=== PATIENT | male | born 1965 | race Two or more races ===

== ENCOUNTER 2021-12-07 06:59 | Emergency (ER) | payer OTHER ==
[~2021-12-07] VITALS: Ht 167.6 cm; Wt 68.0 kg
[2021-12-07 08:17] VITALS: BP 124/62
[2021-12-07] MEDS ORDERED: CIP03OS LEFTEYE (08:32)
== END 2021-12-07 08:39 | disposition home or self-care (01) ==
LOC: ER 06:59
DX: H10.9 Unspecified conjunctivitis (principal); Z79.899 Other long term (current) drug therapy

== ENCOUNTER 2022-02-10 07:22 | Emergency (ER) | payer OTHER ==
[~2022-02-10] VITALS: Ht 167.6 cm; Wt 69.0 kg
[~2022-02-10 07:22] MED LIST: CIP03OS LEFTEYE
[2022-02-10] MEDS ORDERED: ERY05OO OP (08:19)
[2022-02-10 08:20] VITALS: BP 136/67
== END 2022-02-10 08:30 | disposition home or self-care (01) ==
LOC: ER 07:22
DX: H00.022 Hordeolum internum right lower eyelid (principal)